=== PATIENT | male | born 1950 | race Caucasian/White ===

== ENCOUNTER 2021-07-29 11:03 | Emergency (ER) | payer BC, MEDICARE ==
[~2021-07-29] VITALS: Ht 185.4 cm; Wt 99.8 kg
[2021-07-29] MEDS ORDERED: CASIRIVIMAB/IMDEVIMAB 10 ML in SODIUM CHLORIDE 0.9% 100 ML IV ONE (11:15)
== END 2021-07-29 12:44 | disposition home or self-care (01) ==
LOC: ER 11:10
DX: U07.1 COVID-19 (principal)
CPT/HCPCS: 99283; J7050